=== PATIENT | female | born 1975 | race African-American/Black ===

== ENCOUNTER 2017-07-11 05:34 | Day surgery (SDC) | payer OTHER ==
[2017-07-09 16:16] VITALS: BMI 55.7
[2017-07-11] MEDS ORDERED: ONDANSETRON 4 MG/2 ML VIAL IVPUSH PRN (10:52)
[2017-07-11] MEDS ORDERED: oxyCODONE HCL 5 MG TABLET PO PRN (10:52)
[2017-07-11] MEDS ORDERED: PROMETHAZINE HCL 25 MG/1 ML VIAL IVPUSH PRN (10:52)
--- NOTE | 2017-07-11 10:52 | HP ---
Satellite [facility] - Chief Complaint Chief Complaint: right wrist ganglion cyst - Past Medical History Allergies/Adverse Reactions: Allergies Allergy/AdvReac Type Severity Reaction Status Date / Time Milk Containing Products AdvReac "DIARRHEA" Verified 07/11/17 09:36 ...LMP: 06/06/17 - Current Medications Current Medications: Home Medications Medication Instructions Recorded Multivitamin [Poly-Vitamin] 1 each PO DAILY 07/11/17 Oxycodone HCl/Acetaminophen 1 - 2 tab PO Q6H #30 tab MDD 8 07/11/17 [Percocet 5-325 mg Tablet -] Satellite Physical Exam - Physical Examination Vital Signs: Vital Signs Period Temp Pulse Resp BP Sys/Linder Pulse Ox Last 24 Hr 98.3 F 91 20 144/98 100 General Appearance: Well Nourished, Well Developed, Alert & Oriented x3, Obese ENT: Clear Lung: Normal air movement Heart: Regular rate & rhythm Extremities: Other (right wrist- + dorsal mass, + ttp, nvi) Neurological: Intact, Alert, Oriented Satellite Impression/Plan - Impression/Plan Impression: right wrist ganglion cyst Operative Procedure: right wrist ganglion cyst excision Date to be Performed: 07/11/17
[2017-07-11] MEDS ORDERED: LIDOCAINE HCL 1%, 10 MG/ML (20ML VIAL) ONE (10:53)
[2017-07-11] MEDS ORDERED: BUPIVACAINE HCL/PF 0.5% (5MG/ML) 10 ML VIAL ONE (10:53)
[2017-07-11] MEDS ORDERED: LACTATED RINGERS SOLUTION 1,000 ML IV SCH (11:00)
[2017-07-11] MEDS ORDERED: ceFAZolin SODIUM 1 GM VIAL IVPB ONE (11:15)
[2017-07-11] MEDS ORDERED: MIDAZOLAM HCL 2 MG/2 ML SINGLE DOSE VIAL ONE ×2 (11:16→11:20)
[2017-07-11] MEDS ORDERED: PROPOFOL 20 ML ONE (11:21)
[2017-07-11] MEDS ORDERED: ceFAZolin SODIUM 1 GM VIAL ONE (11:26)
[2017-07-11] MEDS ORDERED: BUPIVACAINE HCL/PF (5 MG/ML) 30 ML VIAL IJ ONE ×2 (11:29)
[2017-07-11] MEDS ORDERED: LIDOCAINE HCL 1%, 10 MG/ML (20ML VIAL) IJ ONE ×2 (11:29)
--- NOTE | 2017-07-11 11:51 | OP ---
Operative Note - Note: Operative Date: 07/11/17 ([facility]) Pre-Operative Diagnosis: right wrist ganglion cyst Operation: right wrist ganglion cyst excision Post-Operative Diagnosis: Same as Pre-op Surgeon: Nick Almendarez Hospital Manager: Edgar Jordan Anesthesia: Local, MAC Specimens Removed: ganglion cyst Estimated Blood Loss (mls): 0 (tourniquet) Operative Report Dictated: Yes
--- NOTE | 2017-07-11 12:54 | OP ---
DATE OF OPERATION: DATE OF DICTATION: 07/11/2017 PREOPERATIVE DIAGNOSIS: Right wrist dorsal ganglion cyst. POSTOPERATIVE DIAGNOSIS: Right wrist dorsal ganglion cyst. PROCEDURE: Right wrist excision, mass, ganglion cyst. SURGEON: Nick Almendarez MD GENERAL SERVICE OFFICER: Edgar Jordan MD ANESTHESIOLOGIST: Laila Alfaro MD ANESTHESIA: MAC anesthesia, local injection of 10 mL 0.5% Marcaine with 1% lidocaine mix. DRAINS: None. COMPLICATIONS: None. SPECIMEN: Mass/ganglion, right wrist. BLOOD LOSS: None. BLOOD GIVEN: None. FLUID REPLACEMENT: 500 mL. This patient is a 41-year-old female with a preoperative diagnosis of a mass on the dorsal aspect of the right wrist. After understanding the potential risks, complications, alternatives, and benefits of surgical versus nonsurgical treatment, the patient elected to undergo this procedure. She understands that there is a 1% chance of recurrence even after surgical excision. The patient was brought to the operating room. Peripheral IV placed. IV sedation given. IV Ancef, 2 g, was given. The right upper extremity was prepped and draped in the usual sterile fashion, elevated, exsanguinated with an Esmarch bandage. Tourniquet was inflated to 275 mmHg. The patient had high blood pressure chronically and also during the case and therefore the tourniquet was set at 25 mmHg higher than usual, as well as the fact that she was quite overweight. A marking pen was utilized to dionisio out a transverse incision within Noemi line on the dorsal aspect of the right wrist. Marcaine 0.5%/1% lidocaine mixture, 10 mL, was injected in the area of the surgical incision. The incision was made with a No. 15 scalpel blade. Subcutaneous hemostasis achieved with the bipolar cautery. Dissection done with a curved iris scissors, exposing the mass. At one point, it popped and ganglion cyst-like fluid was expressed, confirming the diagnosis of ganglion cyst. It was held in place and retracted under tension with an Allis clamp. Circumferential dissection was done with a Littler scissors. The stalk was traced down to the dorsal wrist capsule, decapitated at its base, cauterized at the base. The area was copiously irrigated and washed out. Additional cauterization done. Additionally washed out again. No other abnormal tissue was seen or felt. Therefore, closure was done with 4-0 undyed Vicryl in the deep dermal layer and final skin reapproximation was done with a running subcuticular 4-0 Biosyn stitch. The area was then washed and dried, covered with Steri-Strips, 4 x 4's, fluffs between the fingers, Webril, and Coban. Tourniquet was taken down after a total tourniquet time of 15 minutes. There were no complications during the case. Patient tolerated the procedure quite well and was brought to the ambulatory recovery room in stable condition. Moira [id number]
[2017-07-11 14:33] VITALS: BP 124/73; PULSE 94
[2017-07-11 14:37] VITALS: TEMP 98
--- NOTE | 2017-07-12 12:23 | PATH ---
Surgical Pathology Report Patient Name: KISHAN ESTRADA [facility]. Rec. #: [id number] /Age/Gender: 1975 (Age: 41) / F Account: [id number] Location: [facility] SURGICAL Taken: 07/11/2017 Received: 07/11/2017 Reported: 07/12/2017 Physicians: Edgar Jordan M.D. Specimen(s) Received MASS OF RIGHT WRIST Clinical History Mass right wrist Final Diagnosis SOFT TISSUE, RIGHT WRIST, EXCISION: GANGLION CYST. Electronically Signed Hiren Myers M.D. Gross Description Received in formalin labeled "mass right wrist," is a 2.5 x 1.2 x 0.3 cm bryan-yellow, irregular portion of soft tissue, possibly consistent with a cyst. The specimen is serially sectioned and manufacturing sales representative sections are submitted in one cassette. /07/11/2017 saudi/07/11/2017
== END 2017-07-11 14:39 | disposition home or self-care (01) ==
LOC: JASU-SURG 05:34
PROVIDERS: ATTEND Orthopaedic Surgery
PROC: 0XBG0ZZ Excision of Right Wrist Region, Open Approach (ICD-10-PCS; principal; 2017-07-11 09:30)
DX: M67.431 Ganglion, right wrist (principal)
CPT/HCPCS: 84703; 88304-TC; 94760